=== PATIENT | female | born 1940 | race Caucasian/White ===

== ENCOUNTER → 2016-12-01 | Outpatient (CLI) | payer OTHER, MEDICARE ==
[~2016-12-01] MED LIST: GADOBUTROL 10 ML VIAL IVP ONE
--- NOTE | 2016-12-01 15:15 | MA ---
CORRECTED ORDER Screening Digital Mammogram With iCAD Analysis Clinical Indications: 76-year-old female whose mother had breast cancer at age 70. The patient presents for routine annual mammographic screening. Technique: Standard cephalocaudal projections are obtained. Digital breast tomosynthesis was performed in the MLO projection with reconstruction at 1.0 mm slice thickness and composite MLO views reconstructed. This examination is processed by the iCAD computer aided detection system. Cutaneous markers are in place normal zone the skin surface of each breast. Comparison: Bilateral digital screening mammography, dated November 30, 2015, November 28, 2014, November 05, 2013, October 15, 2012, October 13, 2011, and October 11, 2010. Breast Density: Type B; Scattered fibroglandular densities. Findings: CAD was reviewed. There are no new masses, suspicious calcifications, or secondary signs of malignancy seen. There has been no significant change in the appearance of either breast. A small nodular opacity in the superior left breast is unchanged from previous exams. There are some benign-appearing calcifications seen bilaterally, some of which are dermal in etiology. Impression: Benign mammography. BI-RADS 2. Recommendation: Routine mammographic screening in one year. [facility] will send a result letter to the patient. Negative mammography should not preclude additional workup of a clinically suspicious finding. The patient's information is entered into a reminder system with a target due date for her next mammogram. [facility]
== END ==
LOC: FIMAGING 13:55
DX: Z12.31 Encounter for screening mammogram for malignant neoplasm of breast (principal); Z80.3 Family history of malignant neoplasm of breast
CPT/HCPCS: A9585; G0202

== ENCOUNTER → 2017-05-03 | Outpatient (CLI) | payer OTHER, MEDICARE | LOC: BMCIMAGING 10:54 | PROVIDERS: ATTEND Internal Medicine Rheumatology | DX: M02.2 Postimmunization arthropathy (principal); M19.041 Primary osteoarthritis, right hand; M19.042 Primary osteoarthritis, left hand; M17.12 Unilateral primary osteoarthritis, left knee; M11.262 Other chondrocalcinosis, left knee ==

== ENCOUNTER → 2017-12-05 | Outpatient (CLI) | payer OTHER, MEDICARE ==
[~2017-12-05] MED LIST changes: -GADOBUTROL 10 ML VIAL IVP ONE; +HEPARIN 10,000 UNIT/10 ML MDV ONE; +VERAPAMIL 5 MG/2 ML VIAL ONE
== END ==
LOC: FIMAGING 14:10
PROVIDERS: ATTEND Family Medicine
DX: Z12.31 Encounter for screening mammogram for malignant neoplasm of breast (principal); Z80.3 Family history of malignant neoplasm of breast
CPT/HCPCS: J1644

== ENCOUNTER → 2018-10-09 | Outpatient (CLI) | payer OTHER, MEDICARE | LOC: FIMAGING 15:43 | PROVIDERS: ATTEND Family Medicine | DX: H02.402 Unspecified ptosis of left eyelid (principal); M43.12 Spondylolisthesis, cervical region; M50.321 Other cervical disc degeneration at C4-C5 level ==

== ENCOUNTER → 2018-11-06 | Outpatient (CLI) | payer OTHER, MEDICARE ==
[~2018-11-06] MED LIST changes: +GADOBUTROL 10 ML VIAL IVP ONE; -HEPARIN 10,000 UNIT/10 ML MDV ONE; -VERAPAMIL 5 MG/2 ML VIAL ONE
== END ==
LOC: FIMAGING 17:28
PROVIDERS: ATTEND Internal Medicine Hematology & Oncology
DX: C85.10 Unspecified B-cell lymphoma, unspecified site (principal); H02.401 Unspecified ptosis of right eyelid
CPT/HCPCS: 70553; A9585; 86705-90

== ENCOUNTER → 2018-11-07 | Outpatient (CLI) | payer OTHER, MEDICARE ==
[~2018-11-07] MED LIST changes: -GADOBUTROL 10 ML VIAL IVP ONE; +LIDO/EPI 1% **for epidural** 30 ML SDV ONE; +METHOTREXATE SODIUM IT ONE; +NS IT ONE
[2018-11-07 13:46] LABS: INR 1.03 (0.83-1.16); PROTIME(PATIENT) 13.7 SEC (12.0-15.0)
== END ==
LOC: FIMAGING 12:52
PROVIDERS: ATTEND Internal Medicine Hematology & Oncology
PROC: 3E0R305 Introduction of Other Antineoplastic into Spinal Canal, Percutaneous Approach (ICD-10-PCS; principal; 2018-11-07)
DX: Z51.11 Encounter for antineoplastic chemotherapy (principal); C85.90 Non-Hodgkin lymphoma, unspecified, unspecified site
CPT/HCPCS: 88112; 96450; J9250; 82784-90; 83916-90

== ENCOUNTER → 2018-11-08 | Outpatient (CLI) | payer OTHER, MEDICARE | LOC: BHFA 14:00 | PROVIDERS: ATTEND Internal Medicine Cardiovascular Disease | DX: Z51.11 Encounter for antineoplastic chemotherapy (principal) ==

== ENCOUNTER 2018-11-23 09:43 | Day surgery (SDC) | payer OTHER, MEDICARE ==
[2018-11-23] MEDS ORDERED: NALOXONE HCL 0.4 MG/ML INJ IVP PRN (10:58)
[2018-11-23] MEDS ORDERED: MEPERIDINE 25 MG/ML SYR IVP PRN (10:58)
[2018-11-23] MEDS ORDERED: fentaNYL 100 MCG/2 ML INJ IVP PRN (10:58)
[2018-11-23] MEDS ORDERED: NS 1,000 ML IV SCH (11:00)
--- NOTE | 2018-11-23 11:03 | PDRADPRE ---
Radiology History & Physical Indication for procedure: cancer Home medications: Calcium Carb/Vit D3/Minerals [[employer] CALCIUM CHEWABLES PLUS TAB] 1 tab PO DAILY [Last Taken 02/01/16] Levothyroxine [Synthroid 50 mcg (*)] 50 mcg PO DAILY06 02/16/15 [Last Taken ] Multivitamins [Multivitamin (*)] 1 each PO DAILY 02/16/15 [Last Taken 02/01/16] Beta-Carotene(A) W-C & E/Min [Ocuvite] 1 tab PO DAILY 01/19/16 [Last Taken 01/31] Cholecalciferol Vit D3 [Vitamin D3 2000 units] 2,000 units PO DAILY 01/19/16 [ Last Taken 02/01/16] Gabapentin [Neurontin 300 MG (*)] 300 mg PO BID 01/19/16 [Last Taken Unknown] Allergies/Adverse Reactions: shellfish derived [shrimp] Allergy (Mild, Verified 02/23/15 15:08) BLOATING Mental status: A&Ox3
--- NOTE | 2018-11-23 11:03 | PDPROPOC ---
Sedation Plan of Care ASA Classification: ASA 2 Mallampati Score: Class 2 Mallampati Reference Image:
[2018-11-23] MEDS ORDERED: LIDOCAINE 1% 300 MG/30 ML SDV ONE (11:17)
[2018-11-23] MEDS ORDERED: LIDO/EPI 1% **for epidural** 30 ML SDV ONE (11:42)
[2018-11-23] MEDS ORDERED: ACETAMINOPHEN 325 MG TAB PO PRN (12:21)
[2018-11-23] MEDS ORDERED: ONDANSETRON 4 MG/2 ML VIAL IVP PRN (12:21)
[2018-11-23 13:29] VITALS: BP 152/91
== END 2018-11-23 13:30 | disposition home or self-care (01) ==
LOC: FIMAGING 09:43
PROVIDERS: ATTEND Internal Medicine Hematology & Oncology
DX: C85.10 Unspecified B-cell lymphoma, unspecified site (principal)
CPT/HCPCS: J1642; J2310; J3010

== ENCOUNTER → 2018-12-17 | Outpatient (CLI) | payer OTHER, MEDICARE ==
[~2018-12-17] MED LIST changes: -LIDO/EPI 1% **for epidural** 30 ML SDV ONE; +LIDOCAINE 1% 300 MG/30 ML SDV ONE
[2018-12-17 09:11] LABS: INR 0.97 (0.83-1.16); PROTIME(PATIENT) 13.1 SEC (12.0-15.0)
== END ==
LOC: FIMAGING 08:16
PROVIDERS: ATTEND Internal Medicine Hematology & Oncology
PROC: 009U3ZX Drainage of Spinal Canal, Percutaneous Approach, Diagnostic (ICD-10-PCS; principal; 2018-12-17)
DX: C85.10 Unspecified B-cell lymphoma, unspecified site (principal)
CPT/HCPCS: 62270; J9250

== ENCOUNTER → 2019-01-07 | Outpatient (CLI) | payer OTHER, MEDICARE ==
[~2019-01-07] MED LIST changes: +IOHEXOL 350mgI/ML (OMNIPAQUE) 150 ML BTL IV ONE; -LIDOCAINE 1% 300 MG/30 ML SDV ONE
== END ==
LOC: FIMAGING 12:31
PROVIDERS: ATTEND Nurse Practitioner
DX: I82.4Z2 Acute embolism and thrombosis of unspecified deep veins of left distal lower extremity (principal); R91.8 Other nonspecific abnormal finding of lung field; C85.10 Unspecified B-cell lymphoma, unspecified site; R05 Cough
CPT/HCPCS: 71046; 71275; 93971; Q9967; J9250

== ENCOUNTER → 2019-01-08 | Outpatient (CLI) | payer OTHER, MEDICARE ==
[~2019-01-08] MED LIST changes: -IOHEXOL 350mgI/ML (OMNIPAQUE) 150 ML BTL IV ONE; +IOPAMIDOL (ISOVUE-M 200) 20 ML VIAL ONE; +LIDOCAINE 1% 300 MG/30 ML SDV ONE
== END ==
LOC: FIMAGING 08:59
PROVIDERS: ATTEND Internal Medicine Hematology & Oncology
PROC: 3E0S305 Introduction of Other Antineoplastic into Epidural Space, Percutaneous Approach (ICD-10-PCS; principal; 2019-01-08)
DX: C85.10 Unspecified B-cell lymphoma, unspecified site (principal)
CPT/HCPCS: 77003; 96450; J9250; Q9966

== ENCOUNTER → 2019-01-21 | Outpatient (CLI) | payer OTHER, MEDICARE | LOC: FIMAGING 14:50 | DX: R05 Cough (principal); M47.894 Other spondylosis, thoracic region; M47.896 Other spondylosis, lumbar region; Z95.9 Presence of cardiac and vascular implant and graft, unspecified ==

== ENCOUNTER → 2019-02-05 | Outpatient (CLI) | payer OTHER, MEDICARE ==
[2019-02-05 09:18] LABS: INR 1.02 (0.83-1.16)
== END ==
LOC: FIMAGING 08:17
PROVIDERS: ATTEND Internal Medicine Hematology & Oncology
DX: C83.30 Diffuse large B-cell lymphoma, unspecified site (principal)
CPT/HCPCS: 88112; 96450; J9250; Q9966

== ENCOUNTER 2019-02-11 15:43 | Inpatient (IN) | payer OTHER, MEDICARE ==
--- NOTE | 2019-02-11 16:19 | EDPHY ---
H & P Time Seen by Provider: 02/11/19 16:19 HPI/ROS: CHIEF COMPLAINT: Fever and dehydration HISTORY OF PRESENT ILLNESS: 79-year-old woman presents with fever and shaking chills today. She had her last chemotherapy for lymphoma about 2 weeks ago, said mouth sores getting worse each day since then with decreased oral intake. She developed a little bit of a cough 2 days ago and started with fever and shaking chills today. Symptoms severe, associated with decreased oral intake but no vomiting or diarrhea. No chest pain or shortness of breath, no headache or neck stiffness. Not better or worse with anything. REVIEW OF SYSTEMS: Eye: no change in vision ENT: HPI Cardiac: no chest pain or syncope Pulmonary: HPI Abdomen: no vomiting, diarrhea, abdominal pain Musculoskeletal: no back pain or neck pain Skin: Facial abrasion after tripping coming back from the bathroom last night. Neuro: no headache Constitutional: HPI : no urinary symptoms A comprehensive 10 point review of systems is otherwise negative aside from elements mentioned in the history of present illness. PAST MEDICAL HISTORY: Lymphoma, Dr. Vickers. 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 Eyes: No scleral icterus. ENT, Mouth: Dry mucous membranes. Respiratory: Slight expiratory wheezing right slightly greater than left. Cardiovascular: Regular rate and rhythm. Gastrointestinal: Abdomen is soft and non tender. Neurological: Alert, face symmetric, normal motor and sensory in extremities. Fluent speech. Skin: Bridge of the nose abrasion. Skin over the right subclavian port is clean dry and intact. Musculoskeletal: No midline spinal tenderness. No meningeal signs. Psychiatric: Not agitated. Emergency Department course/MDM: Patient presents with fever and neutropenia. Plan for broad-spectrum antibiotics, lactate, IV fluids, admission to hospitalist. Include cefepime, would also include vancomycin because of indwelling port. Noncontrast head CT for head trauma last night and anticoagulated on Xarelto. Cervical spine cleared clinically. Normal saline IV bolus. Lactate not elevated, did not develop hypotension. 1824: head CT per Dalia negative for trauma. Smoking Status: Never smoked Constitutional: Initial Vital Signs Temperature (C) 38.0 C 02/11/19 16:07 Heart Rate 102 H 02/11/19 16:07 Respiratory Rate 18 02/11/19 16:07 Blood Pressure 138/71 H 03/18/19 16:07 O2 Sat (%) 92 02/11/19 16:07 O2 Delivery Mode Room Air Allergies/Adverse Reactions: No Known Allergies Allergy (Unverified 02/11/19 16:06) Home Medications: Medication Instructions Recorded Albuterol [Proventil Inhaler HFA 2 puffs IH TID PRN 02/11/19 (*)] LORazepam [Ativan (*)] 2 mg PO HS 02/11/19 Levothyroxine [Synthroid 50 mcg 50 mcg PO DAILY06 02/11/19 (*)] Rivaroxaban [Xarelto] 20 mg PO DAILY@12 02/11/19 Medical Decision Making - Diagnostics Imaging Results: Imaging Impressions Chest X-Ray 02/11/19 16:28 Impression: Limited hypoventilatory chest with patchy bilateral opacities that could be related to atelectasis or less likely pneumonia. Imaging: I viewed and interpreted images myself Differential Diagnosis: Differential for fever considered including but not limited to viral syndrome, influenza, UTI, sepsis, pneumonia Consult/Admit Bed Type: [address] Vickers Critical Care Time: Critical care time spent by me, Dr. Tompkins, exclusively with the care of this patient was 30 minutes, exclusive of PA or PIERCER OPERATOR time and exclusive of separate procedures. The organ system at risk was infectious and I ordered IV fluids and multiple antibiotics and multiple diagnostics to stabilize the patient and prevent worsening of the patient's condition. - Data Points Laboratory Results: Laboratory Results 02/11/19 15:50 02/11/19 15:50 02/11/19 02/11/19 02/11/19 15:56 15:54 15:50 WBC RBC Hgb Hct MCV MCH MCHC RDW Plt Count MPV Neut % (Auto) Lymph % (Auto) [place] % (Auto) Eos % (Auto) Baso % (Auto) Nucleat RBC Rel Count Absolute Neuts (auto) Absolute Lymphs (auto) Absolute Monos (auto) Absolute Eos (auto) Absolute Basos (auto) Absolute Nucleated RBC Immature Gran % Seg Neutrophils % Band Neutrophils % Lymphocytes % Monocytes % Eosinophils % Basophils % Metamyelocytes % Myelocytes % Promyelocytes % Blast Cells % Immature Gran # Absolute Seg Neuts Absolute Band Neuts Absolute Lymphocytes Absolute Monocytes Absolute Eosinophils Absolute Basophils Absolute Metamyelocyte Absolute Myelocytes Absolute Promyelocytes Absolute Plasma Cells Nucleated RBCs Absolute Blast Cells Plasma Cells % Platelet Estimate Elliptocytes Smear Review By PT 14.7 SEC SEC (12.0-15.0) INR 1.20 H (0.83-1.16) APTT 31.7 SEC SEC (23.0-38.0) VBG Lactic Acid 1.5 mmol/L mmol/L (0.7-2.1) Sodium 129 mEq/L L mEq/L (135-145) Potassium 3.7 mEq/L mEq/L (3.5-5.2) Chloride 97 mEq/L mEq/L (97-110) Carbon Dioxide 21 mEq/l L mEq/l (22-31) Anion Gap 11 mEq/L mEq/L (6-14) BUN 9 mg/dL mg/dL (7-23) Creatinine 0.7 mg/dL mg/dL (0.6-1.0) Estimated GFR > 60 Glucose 139 mg/dL H mg/dL (70-100) Calcium 8.4 mg/dL L mg/dL (8.5-10.4) Total Bilirubin 1.0 mg/dL mg/dL (0.1-1.4) 02/11/19 02/11/19 15:50 15:50 WBC 0.19 10^3/uL L* 10^3/uL (3.80-9.50) RBC 2.05 10^6/uL L 10^6/uL (4.18-5.33) Hgb 7.1 g/dL L g/dL (12.6-16.3) Hct 20.1 % L % (38.0-47.0) MCV 98.0 fL fL (81.5-99.8) MCH 34.6 pg H pg (27.9-34.1) MCHC 35.3 g/dL g/dL (32.4-36.7) RDW 14.5 % % (11.5-15.2) Plt Count 60 10^3/uL L 10^3/uL (150-400) MPV 11.0 fL fL (8.7-11.7) Neut % (Auto) Not Reported Lymph % (Auto) Not Reported [place] % (Auto) Not Reported Eos % (Auto) Not Reported Baso % (Auto) Not Reported Nucleat RBC Rel Count Not Reported Absolute Neuts (auto) Not Reported Absolute Lymphs (auto) Not Reported Absolute Monos (auto) Not Reported Absolute Eos (auto) Not Reported Absolute Basos (auto) Not Reported Absolute Nucleated RBC Not Reported Immature Gran % Not Reported Seg Neutrophils % 5.1 % % Band Neutrophils % 6.1 % % Lymphocytes % 50.5 % % Monocytes % 22.2 % % Eosinophils % 2.0 % % Basophils % 11.1 % % Metamyelocytes % 0.0 % % Myelocytes % 0.0 % % Promyelocytes % 0.0 % % Blast Cells % 0.0 % % Immature Gran # Not Reported Absolute Seg Neuts 0.01 10^3/uL L 10^3/uL (1.70-6.50) Absolute Band Neuts 0.01 10^3/uL 10^3/uL (0.00-0.70) Absolute Lymphocytes 0.10 10^3/uL L 10^3/uL (1.00-3.00) Absolute Monocytes 0.04 10^3/uL L 10^3/uL (0.30-0.80) Absolute Eosinophils 0.00 10^3/uL L 10^3/uL (0.03-0.40) Absolute Basophils 0.02 10^3/uL 10^3/uL (0.02-0.10) Absolute Metamyelocyte 0.00 10^3/mL 10^3/mL (0.00-0.00) Absolute Myelocytes 0.00 10^3/mL 10^3/mL (0.00-0.00) Absolute Promyelocytes 0.00 10^3/uL 10^3/uL (0.00-0.00) Absolute Plasma Cells 0.00 10^3/uL 10^3/uL (0.00-0.00) Nucleated RBCs 2.0 /100 WBC H /100 WBC (0-0) Absolute Blast Cells 0.00 10^3/uL 10^3/uL (0.00-0.00) Plasma Cells % 0.0 % % Platelet Estimate DECREASED L (ADEQ) Elliptocytes 1+ H Smear Review By Pending PT INR APTT VBG Lactic Acid Sodium 129 mEq/L L mEq/L (135-145) Potassium 3.8 mEq/L mEq/L (3.5-5.2) Chloride 96 mEq/L L mEq/L (97-110) Carbon Dioxide 21 mEq/l L mEq/l (22-31) Anion Gap 12 mEq/L mEq/L (6-14) BUN 9 mg/dL mg/dL (7-23) Creatinine 0.7 mg/dL mg/dL (0.6-1.0) Estimated GFR > 60 Glucose 138 mg/dL H mg/dL (70-100) Calcium 8.5 mg/dL mg/dL (8.5-10.4) Total Bilirubin Medications Given: Discontinued Medications Cefepime HCl 2 gm/ Sodium (Chloride) 100 mls @ 200 mls/hr IV EDNOW ONE PRN Reason: Protocol Stop: 02/11/19 16:57 Last Admin: 02/11/19 17:22 Dose: 100 mls Sodium Chloride (Ns) 1,800 mls @ 3,600 mls/hr 30 ml/kg infuse over 30 min ( 1800 ml) IV EDNOW ONE PRN Reason: Protocol Stop: 02/11/19 16:57 Last Admin: 02/11/19 16:38 Dose: 1,800 mls Vancomycin/Sodium Chloride (Vancomycin 1 Gm (Premix)) 250 mls @ 250 mls/hr IV EDNOW ONE PRN Reason: Protocol Stop: 02/11/19 17:30 Last Admin: 02/11/19 16:59 Dose: 250 mls Departure - Departure Disposition: [facility] Inpatient Acute Clinical Impression: Fever and neutropenia Condition: Fair
[2019-02-11 16:25] LABS: PLATELET COUNT 60 10^3/uL (150-400)
[2019-02-11] MEDS ORDERED: CEFEPIME HCL 2 GM in NS 100 ML IV ONE (16:28)
[2019-02-11] MEDS ORDERED: NS 1,800 ML IV ONE (16:28)
[2019-02-11] MEDS ORDERED: VANCOMYCIN HCL/NORMAL SALINE 250 ML IV ONE (16:31)
[2019-02-11 16:49] LABS: INR 1.2 (0.83-1.16); PROTIME(PATIENT) 14.7 SEC (12.0-15.0)
[2019-02-11] MEDS ORDERED: HYDROmorphONE/DILAUDID 1 MG/ML INJ IVP PRN (17:33)
[2019-02-11] MEDS ORDERED: ONDANSETRON DISINTEGRATING 4 MG TAB PO PRN (17:33)
[2019-02-11] MEDS ORDERED: HYDROCODONE/APAP 5/325 TAB PO PRN (17:33)
[2019-02-11] MEDS ORDERED: ONDANSETRON 4 MG/2 ML VIAL IVP PRN (17:33)
[2019-02-11] MEDS ORDERED: PROMETHAZINE HCL 25 MG/ML INJ IVP PRN (17:33)
[2019-02-11] MEDS ORDERED: oxyCODONE IR 5 MG TAB PO PRN (17:33)
[2019-02-11] MEDS ORDERED: ALBUTEROL 3 ML DEYVIAL IH PRN (17:33)
[2019-02-11] MEDS ORDERED: ALBUTEROL 60 PUFFS/8 GM MDI IH PRN (17:35)
[2019-02-11] MEDS ORDERED: NS 1,000 ML IV SCH (17:45)
--- NOTE | 2019-02-11 19:45 | PDGENHP ---
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 She notes that she has been undergoing chemotherapy for her lymphoma and about 2 weeks ago completed her 3rd cycle of RCHOP, she is followed by Dr. Vickers. She has been feeling somewhat poorly since starting chemotherapy and has had some vague chest pain since having her port placed for chemo, but for the last week all of these sxs have gotten worse. She was seen by her oncologist, Dr. Vickers, for these sxs and was started on cough medicine as well as inhalers but she states that did not help. Her mouth and esophagus pain has also significantly increased to where she now has a hard time even swallowing water and a lot of difficulty with eating. She has essentially not eaten anything in 2 days. History Information - Allergies/Home Medication List Allergies/Adverse Reactions: No Known Allergies Allergy (Unverified 02/11/19 16:06) Home Medications: Albuterol [Proventil Inhaler HFA (*)] 2 puffs IH TID PRN 02/11/19 [Last Taken Unknown] LORazepam [Ativan (*)] 2 mg PO HS 02/11/19 [Last Taken Unknown] Levothyroxine [Synthroid 50 mcg (*)] 50 mcg PO DAILY06 02/11/19 [Last Taken ] Rivaroxaban [Xarelto] 20 mg PO DAILY@12 02/11/19 [Last Taken 02/10/19] I have personally reviewed and updated: family history, medical history, social history, surgical history - Past Medical History arthritis, cancer (stage 4a DLBCL, mets to bone), DVT Additional medical history: hypothyroid - Surgical History Additional surgical history: tonsills and adenoids. LTHa. right partial knee replacement. cataracts - Family History Positive for: cancer (gastric) - Social History Smoking Status: Never smoked Alcohol Use: Occasionally Drug Use: None Additional social history: lives independently Review of Systems Review of Systems: ROS: 10pt was reviewed & negative except for what was stated in HPI & below Physical Exam Physical Exam: Temp Pulse Resp BP Pulse Ox 38.0 C 80 16 120/75 97 02/11/19 16:07 02/11/19 17:13 02/11/19 17:13 02/11/19 17:13 02/11/19 17:13 Constitutional: chronically ill appearing, uncomfortable Eyes: PERRL, anicteric sclera Ears, Nose, Mouth, Throat: dry mucous membranes, other (white lesions on buccal mucosa and tongue) Cardiovascular: no murmur, rub, or gallop, tachycardia, No edema Respiratory: reduced air movement, expiratory wheeze, inspiratory crackles Gastrointestinal: normoactive bowel sounds, soft, non-tender abdomen Genitourinary: no bladder tenderness Skin: warm, normal color Musculoskeletal: no muscle tenderness, generalized weakness Neurologic: AAOx3 Psychiatric: interacting appropriately, not anxious, flat affect Lab Data & Imaging Review 02/11/19 15:50 02/11/19 15:50 WBC 0.19 10^3/uL (3.80-9.50) L* 02/11/19 15:50 RBC 2.05 10^6/uL (4.18-5.33) L 02/11/19 15:50 Hgb 7.1 g/dL (12.6-16.3) L 02/11/19 15:50 Hct 20.1 % (38.0-47.0) L 02/11/19 15:50 MCV 98.0 fL (81.5-99.8) 02/11/19 15:50 MCH 34.6 pg (27.9-34.1) H 02/11/19 15:50 MCHC 35.3 g/dL (32.4-36.7) 02/11/19 15:50 RDW 14.5 % (11.5-15.2) 02/11/19 15:50 Plt Count 60 10^3/uL (150-400) L 02/11/19 15:50 MPV 11.0 fL (8.7-11.7) 02/11/19 15:50 Neut % (Auto) Not Reported 02/11/19 15:50 Lymph % (Auto) Not Reported 02/11/19 15:50 [place] % (Auto) Not Reported 02/11/19 15:50 Eos % (Auto) Not Reported 02/11/19 15:50 Baso % (Auto) Not Reported 02/11/19 15:50 Nucleat RBC Rel Count Not Reported 02/11/19 15:50 Absolute Neuts (auto) Not Reported 02/11/19 15:50 Absolute Lymphs (auto) Not Reported 02/11/19 15:50 Absolute Monos (auto) Not Reported 02/11/19 15:50 Absolute Eos (auto) Not Reported 02/11/19 15:50 Absolute Basos (auto) Not Reported 02/11/19 15:50 Absolute Nucleated RBC Not Reported 02/11/19 15:50 Immature Gran % Not Reported 02/11/19 15:50 Seg Neutrophils % 5.1 % 02/11/19 15:50 Band Neutrophils % 6.1 % 02/11/19 15:50 Lymphocytes % 50.5 % 02/11/19 15:50 Monocytes % 22.2 % 02/11/19 15:50 Eosinophils % 2.0 % 02/11/19 15:50 Basophils % 11.1 % 02/11/19 15:50 Metamyelocytes % 0.0 % 02/11/19 15:50 Myelocytes % 0.0 % 02/11/19 15:50 Promyelocytes % 0.0 % 02/11/19 15:50 Blast Cells % 0.0 % 02/11/19 15:50 Immature Gran # Not Reported 02/11/19 15:50 Absolute Seg Neuts 0.01 10^3/uL (1.70-6.50) L 02/11/19 15:50 Absolute Band Neuts 0.01 10^3/uL (0.00-0.70) 02/11/19 15:50 Absolute Lymphocytes 0.10 10^3/uL (1.00-3.00) L 02/11/19 15:50 Absolute Monocytes 0.04 10^3/uL (0.30-0.80) L 02/11/19 15:50 Absolute Eosinophils 0.00 10^3/uL (0.03-0.40) L 02/11/19 15:50 Absolute Basophils 0.02 10^3/uL (0.02-0.10) 02/11/19 15:50 Absolute Metamyelocyte 0.00 10^3/mL (0.00-0.00) 02/11/19 15:50 Absolute Myelocytes 0.00 10^3/mL (0.00-0.00) 02/11/19 15:50 Absolute Promyelocytes 0.00 10^3/uL (0.00-0.00) 02/11/19 15:50 Absolute Plasma Cells 0.00 10^3/uL (0.00-0.00) 02/11/19 15:50 Nucleated RBCs 2.0 /100 WBC (0-0) H 02/11/19 15:50 Absolute Blast Cells 0.00 10^3/uL (0.00-0.00) 02/11/19 15:50 Plasma Cells % 0.0 % 02/11/19 15:50 Platelet Estimate DECREASED (ADEQ) L 02/11/19 15:50 Elliptocytes 1+ H 02/11/19 15:50 PT 14.7 SEC (12.0-15.0) 02/11/19 15:54 INR 1.20 (0.83-1.16) H 02/11/19 15:54 APTT 31.7 SEC (23.0-38.0) 02/11/19 15:54 VBG Lactic Acid 1.5 mmol/L (0.7-2.1) 02/11/19 15:56 Sodium 129 mEq/L (135-145) L 02/11/19 15:50 Potassium 3.7 mEq/L (3.5-5.2) 02/11/19 15:50 Chloride 97 mEq/L (97-110) 02/11/19 15:50 Carbon Dioxide 21 mEq/l (22-31) L 02/11/19 15:50 Anion Gap 11 mEq/L (6-14) 02/11/19 15:50 BUN 9 mg/dL (7-23) 02/11/19 15:50 Creatinine 0.7 mg/dL (0.6-1.0) 02/11/19 15:50 Estimated GFR > 60 02/11/19 15:50 Glucose 139 mg/dL (70-100) H 02/11/19 15:50 Calcium 8.4 mg/dL (8.5-10.4) L 02/11/19 15:50 Total Bilirubin 1.0 mg/dL (0.1-1.4) 02/11/19 15:50 Nasal Influenza A PCR NEGATIVE FOR FLU A (NEGATIVE) 02/11/19 17:50 Nasal Influenza B PCR NEGATIVE FOR FLU B (NEGATIVE) 02/11/19 17:50 Visualized and Interpreted Chest x-ray results: Yes Chest X-Ray results: other (patchy bilateral opacities, atelectasis versus pna) Visualized and Interpreted imaging results: Yes Interpretation: head CT: no acute findings, sclerotic frontal bone lesion unchanged, no new lesions Assessment & Plan Assessment: Fever and neutropenia (Acute) 79 yo F with stage 4 DLBCL s/p RCHOP cycle 3 approximately 2 weeks ago presenting with fever, rigors and cough as well as mouth pain and inability to tolerate PO in setting of neutropenia # neutropenic fever: not yet febrile here, but per report fevers > 102 at home for days, with respiratory complaints but no clear e/o pna. Rigors concerning for bacteremia with blood cultures pending. Started on cefepime and vanco, will continue both for now given complaints of port pain and possible line infection (though port does not appear grossly infected). Blood cultures pending. Resp PCR pending, will get repeat CXR in am. HD stable, lactate wnl. # dysphagia: with oral mucosal lesions that appear most c/w mucositis but difficult to exclude thrush as well, will start magic mouthwash, nystatin s/s, oral care # pancytopenia: in the setting of recent chemotherapy, hgb of 7.1, plts of 60, wbc of 0.19. Will hold off on transfusion for now, but if hgb < 7 would transfuse # DLBCL: undergoing RCHOP s/p cycle [address] Vickers, known bone mets and dural lesion noted on brain MRI # hyponatremia: presumably hypovolemic hyponatremia and has slightly trended down from prior, patient with reasons for SIADH as well, will check urine studies and monitor # DVT: will continue xarelto # IP status, will require > 48 hours stay for eval/mgmt of above, oncology consulted by ER doctor and will see patient in am Patient new to my care. Old records reviewed and summarized as above. Care plan reviewed with ER doctor including plan for abx.
[2019-02-11] MEDS: ACETAMINOPHEN 325 MG TAB PO PRN (20:12)
[2019-02-11] MEDS: IPRATROPIUM/ALBUTEROL 3 ML DEYVIAL IH SCH (20:16)
--- NOTE | 2019-02-11 21:08 | PDMN ---
Medical Necessity Medical necessity: [facility] Systemic or Infectious Condition: 79 yo w/ fever, chills, oral lesions in setting of DLBCL St IV w/ mets to skull, dura and poss tongue/tonsils. Last chemo 2 wks ago. IP status for neutropenic fever w/ WBC 0.19, and pancytopenia H/H 06/15, plt 60. Pt high risk. Onc consult. BC pending. IVF, IV antibx.
[2019-02-11] MEDS: LORazepam 1 MG TAB PO SCH (21:57)
[2019-02-11] MEDS: NYSTATIN SUSP 500000 UNIT/5 ML UD LIQ PO SCH (21:57)
[2019-02-11] MEDS: MBX SOLN 30 ML BOTTLE PO PRN (22:01)
[2019-02-12] MEDS: CEFEPIME HCL 2 GM in NS 100 ML IV SCH ×3 (00:11→18:25)
[2019-02-12 05:08] LABS: PLATELET COUNT 39 10^3/uL (150-400)
[2019-02-12] MEDS: IPRATROPIUM/ALBUTEROL 3 ML DEYVIAL IH SCH ×3 (05:25→17:09)
[2019-02-12] MEDS: LEVOTHYROXINE 50 MCG TAB PO SCH (06:35)
[2019-02-12] MEDS: NYSTATIN SUSP 500000 UNIT/5 ML UD LIQ PO SCH ×4 (06:36→20:59)
[2019-02-12] MEDS: MBX SOLN 30 ML BOTTLE PO PRN ×3 (06:37→21:08)
[2019-02-12] MEDS: ACETAMINOPHEN 325 MG TAB PO PRN ×2 (07:26→20:59)
--- NOTE | 2019-02-12 12:00 | ASMTCMCOM ---
CM Note CM Note Notes: 02/12/2019 Case Management Note Discussed pt during rounds this morning. Pt admitted for fever, neutropenia and lymphoma in the setting of recently diagnosed DLBCL stage 4 with known mets to skull and dura as well as possible mets to tongue and tonsils. [facility] onsite to meet w/pt. PT OT evals are pending. Case Management d/c poc: to be determined. Case Management to follow. Date Signed: 02/12/2019 11:59 AM Electronically Signed By:Génesis Martínez RN
--- NOTE | 2019-02-12 13:02 | PDCONSULT ---
Optometric Aide Note: Hematology/oncology consultation note Reason for consultation: Diffuse large B-cell lymphoma, neutropenic fever History of present illness: This is a very pleasant 79-year-old female with history of diffuse large B-cell lymphoma who was admitted for neutropenic fever. She is well known to our practice and is followed by Dr. Primitivo Vickers. She initially presented in late 2018 and was diagnosed with diffuse large B-cell, GC type, Ki-67 20%. She was initiated on R-CHOP 11/26/2019. She has received a total 4 cycles with the last 1 being 01/31/2019. She did receive growth factor with the 1st few cycles but had significant bony pain, myalgias, and ear pain. She subsequently declined any further G-CSF. She was admitted to [facility] yesterday for symptoms of fatigue, fever, decreased p.o. Intake. She was found to have significant neutropenia with associated fever. She had blood cultures that are currently pending. She did have an abnormal chest x-ray. She has had a 3 week history of ongoing cough that has not improved. She otherwise has no other complaints today. Review of systems: Twelve point review of system was obtained was otherwise negative unless stated in HPI. PMH/PSH: Diffuse large B-cell lymphoma Hypothyroidism Tonsillectomy, adenoidectomy Family history: Father had gastric cancer Social history: She is a never smoker. She is to be an ICU nurse. Medications: Reviewed in the EMR Allergies: No known drug allergies Physical: Temp Pulse Resp BP Pulse Ox 36.9 C 74 18 98/52 L 95 02/12/19 10:22 02/12/19 11:28 02/12/19 11:28 02/12/19 10:22 02/12/19 11:28 O2 (L/minute) 2.5 General: Pleasant-appearing female in no acute distress HEENT: Oropharynx clear, extraocular movements are intact Pulmonary: Crackles appreciated at the base of the right lung otherwise good air entry Cardiovascular: Regular rhythm Abdomen: Soft nontender nondistended bowel sounds are present Extremities: No cyanosis clubbing or edema Neuro: Moving all extremities Psych: Appropriate affect Skin: No skin lesions WBC 0.34 10^3/uL (3.80-9.50) L* 02/12/19 04:15 RBC 1.60 10^6/uL (4.18-5.33) L 02/12/19 04:15 Hgb 5.3 g/dL (12.6-16.3) L* 02/12/19 04:15 Hct 16.5 % (38.0-47.0) L* 02/12/19 04:15 MCV 103.1 fL (81.5-99.8) H 02/12/19 04:15 MCH 33.1 pg (27.9-34.1) 02/12/19 04:15 MCHC 32.1 g/dL (32.4-36.7) L 02/12/19 04:15 RDW 14.5 % (11.5-15.2) 02/12/19 04:15 Plt Count 39 10^3/uL (150-400) L 02/12/19 04:15 MPV 10.9 fL (8.7-11.7) 02/12/19 04:15 Neut % (Auto) Not Reported 02/12/19 04:15 Lymph % (Auto) Not Reported 02/12/19 04:15 Barren % (Auto) Not Reported 02/12/19 04:15 Eos % (Auto) Not Reported 02/12/19 04:15 Baso % (Auto) Not Reported 02/12/19 04:15 Nucleat RBC Rel Count Not Reported 02/12/19 04:15 Absolute Neuts (auto) Not Reported 02/12/19 04:15 Absolute Lymphs (auto) Not Reported 02/12/19 04:15 Absolute Monos (auto) Not Reported 02/12/19 04:15 Absolute Eos (auto) Not Reported 02/12/19 04:15 Absolute Basos (auto) Not Reported 02/12/19 04:15 Absolute Nucleated RBC Not Reported 02/12/19 04:15 Immature Gran % Not Reported 02/12/19 04:15 Seg Neutrophils % 7.8 % 02/12/19 04:15 Band Neutrophils % 8.5 % 02/12/19 04:15 Lymphocytes % 34.5 % 02/12/19 04:15 Monocytes % 37.3 % 02/12/19 04:15 Eosinophils % 6.3 % 02/12/19 04:15 Basophils % 5.6 % 02/12/19 04:15 Metamyelocytes % 0.0 % 02/12/19 04:15 Myelocytes % 0.0 % 02/12/19 04:15 Promyelocytes % 0.0 % 02/12/19 04:15 Blast Cells % 0.0 % 02/12/19 04:15 Immature Gran # Not Reported 02/12/19 04:15 Absolute Seg Neuts 0.03 10^3/uL (1.70-6.50) L 02/12/19 04:15 Absolute Band Neuts 0.03 10^3/uL (0.00-0.70) 02/12/19 04:15 Absolute Lymphocytes 0.12 10^3/uL (1.00-3.00) L 02/12/19 04:15 Absolute Monocytes 0.13 10^3/uL (0.30-0.80) L 02/12/19 04:15 Absolute Eosinophils 0.02 10^3/uL (0.03-0.40) L 02/12/19 04:15 Absolute Basophils 0.02 10^3/uL (0.02-0.10) 02/12/19 04:15 Absolute Metamyelocyte 0.00 10^3/mL (0.00-0.00) 02/12/19 04:15 Absolute Myelocytes 0.00 10^3/mL (0.00-0.00) 02/12/19 04:15 Absolute Promyelocytes 0.00 10^3/uL (0.00-0.00) 02/12/19 04:15 Absolute Plasma Cells 0.00 10^3/uL (0.00-0.00) 02/12/19 04:15 Nucleated RBCs 0 /100 WBC (0-0) 02/12/19 04:15 Absolute Blast Cells 0.00 10^3/uL (0.00-0.00) 02/12/19 04:15 Plasma Cells % 0.0 % 02/12/19 04:15 Platelet Estimate DECREASED (ADEQ) L 02/12/19 04:15 Polychromasia 1+ H 02/12/19 04:15 Hypochromasia 2+ H 02/12/19 04:15 Oval Macrocytes 1+ H 02/12/19 04:15 Elliptocytes 1+ H 02/11/19 15:50 Smear Review By Katie MAJANO MD 02/12/19 04:15 PT 14.7 SEC (12.0-15.0) 02/11/19 15:54 INR 1.20 (0.83-1.16) H 02/11/19 15:54 APTT 31.7 SEC (23.0-38.0) 02/11/19 15:54 VBG Lactic Acid 1.5 mmol/L (0.7-2.1) 02/11/19 15:56 Sodium 135 mEq/L (135-145) 02/12/19 04:15 Potassium 3.5 mEq/L (3.5-5.2) 02/12/19 04:15 Chloride 109 mEq/L (97-110) 02/12/19 04:15 Carbon Dioxide 20 mEq/l (22-31) L 02/12/19 04:15 Anion Gap 6 mEq/L (6-14) 02/12/19 04:15 BUN 7 mg/dL (7-23) 02/12/19 04:15 Creatinine 0.6 mg/dL (0.6-1.0) 02/12/19 04:15 Estimated GFR > 60 02/12/19 04:15 Glucose 105 mg/dL (70-100) H 02/12/19 04:15 Calcium 7.6 mg/dL (8.5-10.4) L 02/12/19 04:15 Total Bilirubin 1.0 mg/dL (0.1-1.4) 02/11/19 15:50 Nasal Influenza A PCR NEGATIVE FOR FLU A (NEGATIVE) 02/11/19 17:50 Nasal Influenza B PCR NEGATIVE FOR FLU B (NEGATIVE) 02/11/19 17:50 Patient ABO/Rh A POSITIVE 02/12/19 06:08 Antibody Screen NEGATIVE 02/12/19 06:08 Crossmatch IS Only See Detail 02/12/19 06:08 Assessment plan This is a 79-year-old female with history of diffuse large B-cell lymphoma status post 4 cycles R-CHOP admitted for neutropenic fever. 1. Neutropenic fever: I agree with empiric coverage with cefepime and vancomycin. Will follow blood cultures. I have recommended obtaining a CT of the chest without contrast given her ongoing cough and abnormalities on her chest x-ray. I did discuss the use of G-CSF but given the lack of hemodynamic instability and the fact that she gets fairly symptomatic from growth factor, I think it is insensible to hold for the time being. 2. Thrombocytopenia: The secondary chemotherapy. 3. Anemia: She has no active bleeding symptoms. She is receiving blood products today. Will continue to monitor post transfusion. 4. History DVT: Recommending holding Xarelto given thrombocytopenia. All questions were answered. She voiced understanding of the plan.
[2019-02-12] MEDS: RIVAROXABAN 20 MG TAB PO SCH (13:35)
--- NOTE | 2019-02-12 14:24 | HOSPPROG ---
Hospitalist Progress Note Assessment/Plan: 79 yo F with stage 4 DLBCL s/p RCHOP cycle 3 approximately 2 weeks ago presenting with fever, rigors and cough as well as mouth pain and inability to tolerate PO in setting of neutropenia # neutropenic fever: Tmax 39.4 overnight, report fevers > 102 at home for days, with respiratory complaints. CXR this AM shows patchy b/l opacities concerning for atelectasis vs. PNA. Rigors concerning for bacteremia with blood cultures pending. Started on cefepime and vanco, will continue both for now given complaints of port pain and possible line infection (though port does not appear grossly infected). Blood cultures pending. Resp PCR negative on admission. HD stable, lactate wnl. Noncontrast CT Chest ordered this afternoon per oncology to further evaluate. # dysphagia: with oral mucosal lesions that appear most c/w mucositis but difficult to exclude thrush as well, will continue magic mouthwash, nystatin s/s , oral care # pancytopenia: in the setting of recent chemotherapy, hgb of 7.1, plts of 60, wbc of 0.19 on admission. Hgb 5.3 this AM, transfusing 2 units PRBCs. Continue to monitor H/H, will hold home Xarelto for now # DLBCL: undergoing RCHOP s/p cycle [address] Vickers, known bone mets and dural lesion noted on brain MRI, palliative care consult placed # hyponatremia: presumably hypovolemic hyponatremia and has slightly trended down from prior, patient with reasons for SIADH as well, improved to 135 this AM s/p IVF, will d/c IVF # DVT: will hold xarelto in setting of anemia as above, restart in next few days if H/H stable, platelets improved FEN: Regular, IVF DVT Ppx: Holding home Xarelto Code: DNR Dispo: Pending clinical course Subjective: Patient reports continued cough this AM Objective: Vital Signs Temp Pulse Resp BP Pulse Ox 36.9 C 74 18 98/52 L 95 02/12/19 10:22 02/12/19 11:28 02/12/19 11:28 02/12/19 10:22 02/12/19 11:28 Microbiology 02/11/19 17:50 Respiratory Panel (PCR) - Final Nasal, Sinus - Aspirate No Organism Detected By Pcr Laboratory Results 02/12/19 04:15 02/12/19 04:15 02/11/19 02/12/19 02/13/19 05:59 05:59 05:59 Intake Total 300 Output Total 600 Balance -300 PT 14.7 SEC (12.0-15.0) 02/11/19 15:54 INR 1.20 (0.83-1.16) H 02/11/19 15:54 - Physical Exam Constitutional: chronically ill appearing Eyes: PERRL Ears, Nose, Mouth, Throat: oral thrush Cardiovascular: regular rate and rhythym Respiratory: reduced air movement Gastrointestinal: soft, non-tender abdomen Skin: warm Musculoskeletal: generalized weakness Neurologic: AAOx3 Psychiatric: interacting appropriately ICD10 Worksheet Patient Problems: Problems Problem Status Onset Fever and neutropenia Acute Primary localized osteoarthritis of left hip Acute
[2019-02-12] MEDS ORDERED: VANCOMYCIN 1.25 GM in NS 250 ML IV SCH (17:00)
[2019-02-12] MEDS ORDERED: IPRATROPIUM/ALBUTEROL 3 ML DEYVIAL IH PRN (17:37)
[2019-02-12] MEDS: guaiFENesin/CODEINE PHOS 10 ML UDCUP PO PRN (20:59)
[2019-02-12] MEDS: LORazepam 1 MG TAB PO SCH (20:59)
[2019-02-12] MEDS: ALBUTEROL 60 PUFFS/8 GM MDI IH SCH (22:47)
[2019-02-13] MEDS: CEFEPIME HCL 2 GM in NS 100 ML IV SCH ×3 (01:51→16:59)
[2019-02-13] MEDS: NYSTATIN SUSP 500000 UNIT/5 ML UD LIQ PO SCH ×4 (05:34→19:55)
[2019-02-13] MEDS: LEVOTHYROXINE 50 MCG TAB PO SCH (05:35)
[2019-02-13] MEDS: MBX SOLN 30 ML BOTTLE PO PRN ×4 (05:35→19:51)
[2019-02-13 06:02] LABS: PLATELET COUNT 47 10^3/uL (150-400)
[2019-02-13] MEDS ORDERED: BIOTENE DRY MOUTH ORAL RINSE 237 ML BTL MM PRN (10:06)
[2019-02-13] MEDS: ACETAMINOPHEN 325 MG TAB PO PRN (10:08)
[2019-02-13] MEDS: ALBUTEROL 60 PUFFS/8 GM MDI IH SCH ×3 (10:24→20:45)
--- NOTE | 2019-02-13 11:33 | SOAPPROG ---
SOAP Progress Note Assessment/Plan: Assessment: This 79-year-old female with history of diffuse large B-cell lymphoma admitted for neutropenic fever. 1. Neutropenic fever: I did review her chest CT that demonstrates a slight right pleural effusion alongside interstitial markings. She has no focal consolidation. Her cultures have been negative. I agree with consolidating her antibiotics down to cefepime. Will continue monitor cultures. Her white blood cell count is improving. 2. Diffuse large B-cell lymphoma: Continue follow-up with Dr. Primitivo Vickers. 3. Thrombocytopenia 4. Anemia: She did have appropriate response to transfusion. Will continue to monitor closely. 5. History DVT: Agree with continue holding Xarelto. 02/13/19 11:31 Subjective: No acute events overnight. She states that she has been unable to eat much by mouth and has decreased appetite. No chest pain or shortness of breath. She continues to have a cough which has not improved. Objective: Vital Signs Temp Pulse Resp BP Pulse Ox 37.2 C 84 14 140/86 H 92 02/13/19 07:50 02/13/19 10:24 02/13/19 10:24 02/13/19 07:50 02/13/19 10:24 Laboratory Results 02/13/19 05:47 02/13/19 05:47 02/12/19 02/13/19 02/14/19 05:59 05:59 05:59 Intake Total 300 750 Output Total 600 Balance -300 750 PT 14.7 SEC (12.0-15.0) 02/11/19 15:54 INR 1.20 (0.83-1.16) H 02/11/19 15:54 General: Pleasant-appearing female in no acute distress appears stated age HEENT: Oropharynx is clear extraocular movements are intact pupils equal round reactive to light, area of trauma from previous fall noted on her forehead and nose Cardiovascular: Regular rate and rhythm Pulmonary: Clear to auscultation, improved from yesterday Abdomen: Soft nontender nondistended bowel sounds are present Extremities: Right-sided port in place no cyanosis clubbing or edema Skin: No skin lesions Lymph: No lymphadenopathy ICD10 Worksheet Patient Problems: Problems Problem Status Onset Fever and neutropenia Acute Primary localized osteoarthritis of left hip Acute
--- NOTE | 2019-02-13 13:16 | HOSPPROG ---
Hospitalist Progress Note Assessment/Plan: 79 yo F with stage 4 DLBCL s/p RCHOP cycle 3 approximately 2 weeks ago presenting with fever, rigors and cough as well as mouth pain and inability to tolerate PO in setting of neutropenia # neutropenic fever: - Tmax 39.4 on admission, report fevers > 102 at home for days, with respiratory complaints - CXR on admission shows patchy b/l opacities concerning for atelectasis vs. PNA. CT Chest performed yesterday which shows interstitial edema - Started on cefepime and vanco on admission, will d/c Vancomycin today, continue Cefepime for now - Blood cultures pending. - Resp PCR negative on admission. HD stable, lactate wnl. # dysphagia: with oral mucosal lesions that appear most c/w mucositis but difficult to exclude thrush as well - will continue magic mouthwash, nystatin s/s, oral care # pancytopenia: in the setting of recent chemotherapy - Hgb of 7.1, plts of 60, wbc of 0.19 on admission. - Hgb 5.3 with 2 units PRBCs transfused yesterday, repeat Hgb 7.5 this AM - Continue to monitor H/H - Holding home Xarelto for now # DLBCL: undergoing RCHOP s/p cycle [address] iVckers, known bone mets and dural lesion noted on brain MRI, palliative care consult placed # hyponatremia: presumably hypovolemic hyponatremia and has slightly trended down from prior, patient with reasons for SIADH as well, improved to 135 this AM s/p IVF, d/c IVF # DVT: will hold xarelto in setting of anemia as above, restart in next few days if H/H stable, platelets improved FEN: Regular, IVF DVT Ppx: Holding home Xarelto Code: DNR Dispo: Pending clinical course Subjective: Patient reports feeling improved this AM Objective: Vital Signs Temp Pulse Resp BP Pulse Ox 37.1 C 81 16 130/76 H 91 L 02/13/19 11:29 02/13/19 11:29 02/13/19 11:29 02/13/19 11:29 02/13/19 11:29 Laboratory Results 02/13/19 05:47 02/13/19 05:47 02/12/19 02/13/19 02/14/19 05:59 05:59 05:59 Intake Total 300 750 Output Total 600 Balance -300 750 PT 14.7 SEC (12.0-15.0) 02/11/19 15:54 INR 1.20 (0.83-1.16) H 02/11/19 15:54 - Physical Exam Constitutional: chronically ill appearing Eyes: PERRL Ears, Nose, Mouth, Throat: dry mucous membranes Cardiovascular: regular rate and rhythym Respiratory: reduced air movement Gastrointestinal: soft, non-tender abdomen Skin: normal color Musculoskeletal: generalized weakness Neurologic: AAOx3 Psychiatric: interacting appropriately ICD10 Worksheet Patient Problems: Problems Problem Status Onset Fever and neutropenia Acute Primary localized osteoarthritis of left hip Acute
[2019-02-13] MEDS ORDERED: PROTOCOL POTASSIUM 1 DOSE MISC PRN (14:22)
[2019-02-13] MEDS ORDERED: POTASSIUM CL 10 MEQ TAB PO ONE (15:05)
[2019-02-13] MEDS ORDERED: POTASSIUM Cl (KCl) 50 ML IV SCH (15:30)
[2019-02-13] MEDS: POTASSIUM Cl (KCl) 100 ML IV SCH ×4 (15:44→21:39)
--- NOTE | 2019-02-13 16:08 | ASMTCMCOM ---
CM Note CM Note Notes: PT/OT have cleared pt for home. A palliative care referral was sent to [facility] per pt and family request. Anticipate pt will d/c with no CM needs when medically cleared but will continue to follow. D/C plan: anticipate d/c home independent with [facility] Date Signed: 02/13/2019 04:08 PM Electronically Signed By:TAPAN Coffman
[2019-02-13] MEDS: LORazepam 1 MG TAB PO SCH (19:55)
[2019-02-14] MEDS: CEFEPIME HCL 2 GM in NS 100 ML IV SCH ×2 (00:14→09:30)
[2019-02-14] MEDS: LEVOTHYROXINE 50 MCG TAB PO SCH (05:41)
[2019-02-14] MEDS: NYSTATIN SUSP 500000 UNIT/5 ML UD LIQ PO SCH ×4 (05:41→19:58)
[2019-02-14] MEDS: guaiFENesin/CODEINE PHOS 10 ML UDCUP PO PRN (05:41)
[2019-02-14] MEDS: MBX SOLN 30 ML BOTTLE PO PRN (05:41)
[2019-02-14 07:00] LABS: PLATELET COUNT 73 10^3/uL (150-400)
[2019-02-14] MEDS: ALBUTEROL 60 PUFFS/8 GM MDI IH SCH ×3 (09:41→21:34)
[2019-02-14] MEDS: POTASSIUM Cl (KCl) 100 ML IV SCH ×3 (10:22→12:27)
--- NOTE | 2019-02-14 13:28 | SOAPPROG ---
SOAP Progress Note Assessment/Plan: Assessment: This 79-year-old female with history of diffuse large B-cell lymphoma admitted for neutropenic fever. 1. Neutropenic fever: White blood cell count continues to improve. ANC is 400 today. We will continue to monitor. She is on antibiotics previously with cefepime switched to Levaquin. Cultures are negative. 2. Diffuse large B-cell lymphoma: Continue follow-up with Dr. Primitivo Vickers. 3. Thrombocytopen 4. Anemia 5. History DVT: Can resume Xarelto if platelets are stable. 02/14/19 13:27 Subjective: No acute events overnight. No chest pain or shortness of breath. She is disappointed that she has had some difficulties with eating. She states that she had a smoothie today and had some pain around the bilateral ears. Objective: Vital Signs Temp Pulse Resp BP Pulse Ox 37.1 C 88 16 132/68 H 93 02/14/19 11:29 02/14/19 11:29 02/14/19 11:29 02/14/19 11:29 02/14/19 11:29 Microbiology 02/13/19 19:19 Gastrointestinal Tract Panel (PCR) - Final Stool No Organism Detected By Pcr Laboratory Results 02/14/19 05:45 02/14/19 05:45 02/13/19 02/14/19 02/15/19 05:59 05:59 05:59 Intake Total 750 500 Output Total 1300 Balance 750 -800 PT 14.7 SEC (12.0-15.0) 02/11/19 15:54 INR 1.20 (0.83-1.16) H 02/11/19 15:54 General: Tearful at times conversant no acute distress HEENT: Abrasions noted on the forehead and nose. Oropharynx is clear external moods are intact pupils equal round reactive to light Cardiovascular: Regular rate and rhythm Pulmonary: Clear to auscultation Extremities: No cyanosis clubbing or edema ICD10 Worksheet Patient Problems: Problems Problem Status Onset Fever and neutropenia Acute Primary localized osteoarthritis of left hip Acute
--- NOTE | 2019-02-14 14:39 | HOSPPROG ---
Hospitalist Progress Note Assessment/Plan: 79 yo F with stage 4 DLBCL s/p RCHOP cycle 3 approximately 2 weeks ago presenting with fever, rigors and cough as well as mouth pain and inability to tolerate PO in setting of neutropenia # neutropenic fever: - Tmax 39.4 on admission, report fevers > 102 at home for days, with respiratory complaints - CXR on admission shows patchy b/l opacities concerning for atelectasis vs. PNA. CT Chest performed on 02/13 which showed interstitial edema - Started on cefepime and vanco on admission, d/c Vancomycin on 02/13, switching from Cefepime to Levaquin today - Blood cultures- NGTD - Resp PCR negative on admission. HD stable, lactate wnl. - Afebrile in past 24 hours, will continue to monitor overnight on PO Abx # dysphagia: with oral mucosal lesions that appear most c/w mucositis but difficult to exclude thrush as well - will continue magic mouthwash, nystatin s/s, oral care, added Biotene on 02/13 # pancytopenia: in the setting of recent chemotherapy - Hgb of 7.1, plts of 60, wbc of 0.19 on admission. - Hgb 5.3 with 2 units PRBCs transfused on 02/12, repeat Hgb 7.6 this AM - Continue to monitor H/H - Holding home Xarelto for now # DLBCL: undergoing RCHOP s/p cycle [address] Vickers, known bone mets and dural lesion noted on brain MRI, palliative care consult placed # hyponatremia: presumably hypovolemic hyponatremia and has slightly trended down from prior, patient with reasons for SIADH as well, improved to 135 this AM s/p IVF, d/c IVF # DVT: will hold xarelto in setting of anemia as above, restart in next few days if H/H stable, platelets improved FEN: Regular, IVF DVT Ppx: Holding home Xarelto Code: DNR Dispo: Pending clinical course Subjective: Patient reports continued pain with swallowing this aM Objective: Vital Signs Temp Pulse Resp BP Pulse Ox 37.1 C 88 16 132/68 H 93 02/14/19 11:29 02/14/19 11:29 02/14/19 11:29 02/14/19 11:29 02/14/19 11:29 Microbiology 02/13/19 19:19 Gastrointestinal Tract Panel (PCR) - Final Stool No Organism Detected By Pcr Laboratory Results 02/14/19 05:45 02/14/19 05:45 02/13/19 02/14/19 02/15/19 05:59 05:59 05:59 Intake Total 750 500 Output Total 1300 Balance 750 -800 PT 14.7 SEC (12.0-15.0) 02/11/19 15:54 INR 1.20 (0.83-1.16) H 02/11/19 15:54 - Physical Exam Constitutional: chronically ill appearing Eyes: PERRL Ears, Nose, Mouth, Throat: dry mucous membranes Cardiovascular: regular rate and rhythym Respiratory: no respiratory distress Gastrointestinal: soft, non-tender abdomen Skin: warm Musculoskeletal: generalized weakness Neurologic: AAOx3 Psychiatric: interacting appropriately ICD10 Worksheet Patient Problems: Problems Problem Status Onset Fever and neutropenia Acute Primary localized osteoarthritis of left hip Acute
--- NOTE | 2019-02-14 15:17 | ASMTCMCOM ---
CM Note CM Note Notes: Met with patient who confirmed her sister would be flying in from [place] on Monday to help care for her at home. [facility] as [facility]. CM available for further needs. Plan: [facility] Date Signed: 02/14/2019 03:16 PM Electronically Signed By:Mildred Mitchell RN
[2019-02-14] MEDS ORDERED: POTASSIUM Cl (KCl) 50 ML IV ONE (19:41)
[2019-02-14] MEDS: LORazepam 1 MG TAB PO SCH (19:58)
[2019-02-14] MEDS: POTASSIUM Cl (KCl) 50 ML IV SCH ×3 (20:01→22:29)
[2019-02-14] MEDS: ACETAMINOPHEN 325 MG TAB PO PRN (23:00)
[2019-02-15] MEDS ORDERED: MELATONIN 3 MG TAB PO PRN (00:05)
[2019-02-15] MEDS: LEVOTHYROXINE 50 MCG TAB PO SCH (05:19)
[2019-02-15] MEDS: NYSTATIN SUSP 500000 UNIT/5 ML UD LIQ PO SCH ×4 (05:19→20:00)
[2019-02-15 05:47] LABS: PLATELET COUNT 87 10^3/uL (150-400)
[2019-02-15] MEDS: ALBUTEROL 60 PUFFS/8 GM MDI IH SCH ×3 (08:44→20:40)
--- NOTE | 2019-02-15 09:59 | SOAPPROG ---
SOAP Progress Note Assessment/Plan: Assessment: This 79-year-old female with history of diffuse large B-cell lymphoma admitted for neutropenic fever. 1. Neutropenic fever: White blood cell count continues to improve. ANC is 700 today. Cultures negative. She has been tapered down to Levaquin. 2. Diffuse large B-cell lymphoma: Continue follow-up with Dr. Primitivo Vickers. 3. Thrombocytopenia: Improved. 4. Anemia 5. History DVT: Can resume Xarelto today. 6. Bilateral Ear pain: This appears to be instigated by swallowing liquids or solids. It does not appear to be cold intolerance. Interestingly, she does not have any complaints with regards to water. I have requested a ENT consultation. 02/15/19 09:59 Subjective: No acute events overnight. She continues to have issues with pain in the bilateral ears when she eats or drinks anything aside from water. This is fairly distressing to her and she is extraordinarily depressed secondary. Objective: Vital Signs Temp Pulse Resp BP Pulse Ox 36.6 C 86 18 118/72 96 02/15/19 08:00 02/15/19 08:00 02/15/19 08:00 02/15/19 08:00 02/15/19 08:00 Laboratory Results 02/15/19 05:30 02/15/19 05:30 02/14/19 02/15/19 02/16/19 05:59 05:59 05:59 Intake Total 500 1900 Output Total 1300 Balance -800 1900 PT 14.7 SEC (12.0-15.0) 02/11/19 15:54 INR 1.20 (0.83-1.16) H 02/11/19 15:54 General: Pleasant-appearing female in no acute distress appears stated age. HEENT: Abrasion noted on the forehead and nose, oropharynx clear extraocular movements are intact pupils equal round reactive to light Cardiovascular: Regular rate and rhythm Pulmonary: Clear to auscultation GI: Soft nontender nondistended bowel sounds are present Extremities: No cyanosis clubbing or edema Psych: Depressed affect, tearful at times Neuro: Moving all extremities ICD10 Worksheet Patient Problems: Problems Problem Status Onset Fever and neutropenia Acute Primary localized osteoarthritis of left hip Acute
[2019-02-15] MEDS ORDERED: LIDOCAINE 2% VISCOUS 15 ML UDCUP PO PRN (11:33)
[2019-02-15] MEDS: RIVAROXABAN 20 MG TAB PO SCH (11:35)
[2019-02-15] MEDS: MBX SOLN 30 ML BOTTLE PO PRN ×2 (11:37→14:18)
--- NOTE | 2019-02-15 12:59 | HOSPPROG ---
Hospitalist Progress Note Assessment/Plan: 79 yo F with stage 4 DLBCL s/p RCHOP cycle 3 approximately 2 weeks ago presenting with fever, rigors and cough as well as mouth pain and inability to tolerate PO in setting of neutropenia # neutropenic fever: - Tmax 39.4 on admission, report fevers > 102 at home for days, with respiratory complaints - CXR on admission shows patchy b/l opacities concerning for atelectasis vs. PNA. CT Chest performed on 02/13 which showed interstitial edema - Started on cefepime and vanco on admission, d/c Vancomycin on 02/13, switched from Cefepime to Levaquin yesterday - Blood cultures- NGTD - Resp PCR negative on admission. HD stable, lactate wnl. - Afebrile in past 24 hours, will continue to monitor on PO Abx while remains neutropenic # dysphagia: with oral mucosal lesions that appear most c/w mucositis but difficult to exclude thrush as well - will continue magic mouthwash, nystatin s/s, oral care, added Biotene on 02/13 , added viscous lidocaine this AM - Oncology consulting ENT this AM due to b/l ear pain with swallowing # pancytopenia: in the setting of recent chemotherapy - Hgb of 7.1, plts of 60, wbc of 0.19 on admission. - Hgb 5.3 with 2 units PRBCs transfused on 02/12, repeat Hgb 7.6 this AM - Continue to monitor H/H - Restarting home Xarelto today, was on hold in setting of decreasing Hgb on admission # DLBCL: undergoing RCHOP s/p cycle [address] Vickers, known bone mets and dural lesion noted on brain MRI, palliative care consulted # hyponatremia: presumably hypovolemic hyponatremia and has slightly trended down from prior, patient with reasons for SIADH as well, improved to 132 from 129 on admission, continue to monitor # DVT: Restarted home Xarelto, monitor for s/s of bleeding FEN: Regular, IVF DVT Ppx: Holding home Xarelto Code: DNR Dispo: Pending clinical course Subjective: Patient reports severe pain with swallowing anything other than water, b/l ear pain assoc as well Objective: Vital Signs Temp Pulse Resp BP Pulse Ox 36.5 C 86 18 118/72 96 02/15/19 11:32 02/15/19 08:00 02/15/19 08:00 02/15/19 08:00 02/15/19 08:00 Laboratory Results 02/15/19 05:30 02/15/19 05:30 02/14/19 02/15/19 02/16/19 05:59 05:59 05:59 Intake Total 500 1900 150 Output Total 1300 Balance -800 1900 150 PT 14.7 SEC (12.0-15.0) 02/11/19 15:54 INR 1.20 (0.83-1.16) H 02/11/19 15:54 - Physical Exam Constitutional: chronically ill appearing Eyes: PERRL Ears, Nose, Mouth, Throat: dry mucous membranes Cardiovascular: regular rate and rhythym Respiratory: no respiratory distress Gastrointestinal: soft, non-tender abdomen Skin: warm Musculoskeletal: generalized weakness Neurologic: AAOx3 Psychiatric: interacting appropriately ICD10 Worksheet Patient Problems: Problems Problem Status Onset Fever and neutropenia Acute Primary localized osteoarthritis of left hip Acute
[2019-02-15] MEDS: ACETAMINOPHEN 325 MG TAB PO PRN (14:14)
--- NOTE | 2019-02-15 14:33 | GCON ---
[f rep st] CONSULTATION Patient is an 79-year-old woman who presented to the emergency room on February 11, with neutropenia. She has diffuse B-cell lymphoma. Since being admitted, she complains of a left-sided sore throat, a nd every time she swallows, it radiates to her ears. She has had fever and shaking chills on admissi on, decreased oral intake. Nose is clear. PAST MEDICAL HISTORY: Significant for lymphoma and a left leg DVT. She is currently on Xarelto. SOCIAL HISTORY: Lives independently. PHYSICAL EXAMINATION: GENERAL: Patient is alert and oriented, in no acute distress. HEAD: Atrauma tic, normocephalic. EARS: Clear. NOSE: Dry. ORAL CAVITY/OROPHARYNX: Clear. NECK: Supple. Fiberoptic laryngoscopy was performed at bedside. She had a large aphthous ulcer on her left lingual tonsil area. Vocal cords were intact. No other masses or lesions were appreciated. ASSESSMENT AND PLAN: Patient with a large aphthous ulcer of left lingual tonsil area. I will start her on Benadryl, Mylanta/Orapred rinse that she will slowly swallow. I explained that these can ofte n be symptomatic for up to 7-10 days. Thank you for allowing us to participate in her care. /[id number]/MODL
[2019-02-15] MEDS ORDERED: [UNRECOGNIZED DRUG - OTHER] PO SCH (16:00)
[2019-02-15] MEDS: POTASSIUM Cl (KCl) 100 ML IV SCH ×2 (16:38→17:47)
--- NOTE | 2019-02-15 16:44 | ASMTCMCOM ---
CM Note CM Note Notes: Discussed in rounds. Pt's twin sister has arrived which has lifted her spirits. Pt seen by Sabra ELIZABETH who performed a Laryngoscopy at the bedside and found an ulcer on her lt tonsil. Medication given which has help and she is now able to eat and drink. Spiritual Care here to see Pt and discuss "Pall care" but Pt did not want to talk at that time her sister had just arrive. CM will monitor needs. PLAN: Home with Sister and possibly [facility]. Date Signed: 02/15/2019 04:42 PM Electronically Signed By:Carley Jonas
[2019-02-15] MEDS: prednisoLONE 15 MG/5 ML ORAL UD LIQ PO SCH ×2 (16:52→20:40)
[2019-02-15] MEDS: diphenhydrAMINE 12.5 MG/5 ML UDCUP PO SCH ×2 (16:52→20:40)
[2019-02-15] MEDS: MAG HYDROX/AL HYDROX/SIMETH 30 ML UDCUP PO SCH ×2 (16:52→20:40)
[2019-02-15] MEDS ORDERED: POTASSIUM Cl (KCl) 50 ML IV ONE (19:47)
[2019-02-15] MEDS: LORazepam 1 MG TAB PO SCH (20:00)
[2019-02-16] MEDS: NYSTATIN SUSP 500000 UNIT/5 ML UD LIQ PO SCH ×4 (06:20→19:59)
[2019-02-16] MEDS: LEVOTHYROXINE 50 MCG TAB PO SCH (06:20)
[2019-02-16 06:35] LABS: PLATELET COUNT 136 10^3/uL (150-400)
[2019-02-16] MEDS: MAG HYDROX/AL HYDROX/SIMETH 30 ML UDCUP PO SCH ×3 (09:13→22:05)
[2019-02-16] MEDS: prednisoLONE 15 MG/5 ML ORAL UD LIQ PO SCH ×3 (09:20→22:05)
[2019-02-16] MEDS: diphenhydrAMINE 12.5 MG/5 ML UDCUP PO SCH ×3 (09:20→22:05)
[2019-02-16] MEDS: ALBUTEROL 60 PUFFS/8 GM MDI IH SCH ×3 (09:57→22:04)
--- NOTE | 2019-02-16 11:17 | SOAPPROG ---
SOAP Progress Note Assessment/Plan: E&M for diffuse large B-cell lymphoma * Neutropenic fever: White blood cell count improving. ANC is just under 1000 today. Cultures negative. She has been tapered down to Levaquin. I recommend watching her for 1 more day and then she can probably go home tomorrow without antibiotics. * Diffuse large B-cell lymphoma: She is day 17 of cycle 4 of R CHOP. She will follow-up with Dr. Vickers for reassessment and determination of further therapy including whether dose reductions or other changes need to be made. * Thrombocytopenia: Resolved * Anemia: Improving and no indication for transfusion * History DVT: Can resume Xarelto today. * Bilateral Ear pain: Appreciate ENTs assistance. She seems to be doing much better and able to eat this morning. I think she will continue to improve as her blood counts improved. Subjective: She is feeling much better. The pain in her ear and throat has improved and she is able to eat breakfast. She denies any chills or diarrhea. She is hoping to go home soon. Objective: Vital Signs Temp Pulse Resp BP Pulse Ox 37.1 C 86 18 159/98 H 91 L 02/16/19 08:44 02/16/19 08:44 02/16/19 08:44 02/16/19 08:44 02/16/19 08:44 Laboratory Results 02/16/19 06:15 02/16/19 06:15 02/15/19 02/16/19 02/17/19 05:59 05:59 05:59 Intake Total 1900 700 Balance 1900 700 PT 14.7 SEC (12.0-15.0) 02/11/19 15:54 INR 1.20 (0.83-1.16) H 02/11/19 15:54 Physical Exam - Physical Exam General Appearance: no apparent distress EENT: pharynx normal Respiratory: lungs clear Cardiac/Chest: regular rate, rhythm, systolic murmur Abdomen: non-tender, soft ICD10 Worksheet Patient Problems: Problems Problem Status Onset Fever and neutropenia Acute Primary localized osteoarthritis of left hip Acute
[2019-02-16] MEDS: MBX SOLN 30 ML BOTTLE PO PRN ×3 (12:10→17:33)
[2019-02-16] MEDS: RIVAROXABAN 20 MG TAB PO SCH (12:28)
--- NOTE | 2019-02-16 15:17 | HOSPPROG ---
Hospitalist Progress Note Assessment/Plan: 79 yo F with stage 4 DLBCL s/p RCHOP cycle 3 approximately 2 weeks ago presenting with fever, rigors and cough as well as mouth pain and inability to tolerate PO in setting of neutropenia # neutropenic fever: - Tmax 39.4 on admission, report fevers > 102 at home for days, with respiratory complaints - CXR on admission shows patchy b/l opacities concerning for atelectasis vs. PNA. CT Chest performed on 02/13 which showed interstitial edema - Started on cefepime and vanco on admission, d/c Vancomycin on 02/13, switched from Cefepime to Levaquin on 02/14 (Day 6 of abx) - Blood cultures- NGTD - Resp PCR negative on admission. HD stable, lactate wnl. - Afebrile in past 72 hours, will continue to monitor on PO Abx while remains neutropenic, likely d/c abx tomorrow after 7 day course # dysphagia: with oral mucosal lesions that appear most c/w mucositis but difficult to exclude thrush as well - will continue magic mouthwash, nystatin s/s, oral care, added Biotene on 02/13 , added viscous lidocaine on 02/15 - Oncology consulted ENT on 02/15, s/p laryngoscopy which showed L sided apthous ulcer, started benadryl, mylanta, steroid PO with significant improvement in symptoms, able to tolerate food without significant pain # pancytopenia: in the setting of recent chemotherapy - Hgb of 7.1, plts of 60, wbc of 0.19 on admission. - Hgb 5.3 with 2 units PRBCs transfused on 02/12, repeat Hgb 8.3 this AM - Continue to monitor H/H - Restarted home Xarelto on 02/15, was on hold in setting of decreasing Hgb on admission # DLBCL: undergoing RCHOP s/p cycle [address] Vickers, known bone mets and dural lesion noted on brain MRI, palliative care consulted # hyponatremia: presumably hypovolemic hyponatremia and has slightly trended down from prior, patient with reasons for SIADH as well, improved to 132 from 129 on admission, continue to monitor # DVT: Restarted home Xarelto, monitor for s/s of bleeding FEN: Regular, IVF DVT Ppx: Home Xarelto Code: DNR Dispo: Pending clinical course Subjective: Patient reports significant improvement in pain with swallowing Objective: Vital Signs Temp Pulse Resp BP Pulse Ox 36.6 C 80 18 150/86 H 95 02/16/19 11:17 02/16/19 11:17 02/16/19 11:17 02/16/19 11:17 02/16/19 11:17 Laboratory Results 02/16/19 06:15 02/16/19 06:15 02/15/19 02/16/19 02/17/19 05:59 05:59 05:59 Intake Total 1900 700 Balance 1900 700 PT 14.7 SEC (12.0-15.0) 02/11/19 15:54 INR 1.20 (0.83-1.16) H 02/11/19 15:54 - Physical Exam Constitutional: chronically ill appearing Eyes: PERRL Ears, Nose, Mouth, Throat: dry mucous membranes Cardiovascular: regular rate and rhythym Respiratory: no respiratory distress Gastrointestinal: soft, non-tender abdomen Skin: warm Musculoskeletal: generalized weakness Neurologic: AAOx3 Psychiatric: interacting appropriately ICD10 Worksheet Patient Problems: Problems Problem Status Onset Fever and neutropenia Acute Primary localized osteoarthritis of left hip Acute
[2019-02-16] MEDS: LORazepam 1 MG TAB PO SCH (19:59)
[2019-02-17] MEDS: NYSTATIN SUSP 500000 UNIT/5 ML UD LIQ PO SCH ×2 (05:22→14:28)
[2019-02-17] MEDS: LEVOTHYROXINE 50 MCG TAB PO SCH (05:22)
[2019-02-17 05:37] LABS: PLATELET COUNT 140 10^3/uL (150-400)
[2019-02-17] MEDS: MBX SOLN 30 ML BOTTLE PO PRN ×2 (08:27→11:39)
[2019-02-17] MEDS: MAG HYDROX/AL HYDROX/SIMETH 30 ML UDCUP PO SCH (09:16)
[2019-02-17] MEDS: prednisoLONE 15 MG/5 ML ORAL UD LIQ PO SCH (09:17)
[2019-02-17] MEDS: diphenhydrAMINE 12.5 MG/5 ML UDCUP PO SCH (09:18)
[2019-02-17] MEDS: ALBUTEROL 60 PUFFS/8 GM MDI IH SCH ×2 (09:22→09:30)
--- NOTE | 2019-02-17 10:08 | ASMTCMCOM ---
CM Note CM Note Notes: Met with Pt who will discharge today. Pt is refusing [facility] at this time but will call them if needed. Pt's sister is in town for the next two week to help her. CM available if needs arise. PLAN: Home independently with sister, Yue Lowe available if needed. Date Signed: 02/17/2019 10:08 AM Electronically Signed By:Carley Jonas
--- NOTE | 2019-02-17 10:11 | ASMTLACE ---
LACE Length of stay for Answers: 4-6 days current admission Acuity / Level of Answers: Yes Care: Did the patient have an inpatient admission? Comorbidities - select Answers: Any tumor (including all that apply lymphoma or leukemia) Other Notes: arthritis, DVT, hypothy lupe d # of Emergency department Answers: 1-2 visits in the last 6 months Score: 11 Date Signed: 02/17/2019 10:11 AM Electronically Signed By:Carley Jonas
[2019-02-17] MEDS ORDERED: POTASSIUM CL 10 MEQ TAB PO ONE (10:15)
[2019-02-17 12:29] VITALS: BP 143/89
[2019-02-17] MEDS: RIVAROXABAN 20 MG TAB PO SCH (14:28)
--- NOTE | 2019-02-17 14:48 | PDDCSUM ---
Discharge Summary Discharge Summary: Date of Admission: 02/11/2019 Date of Discharge: 02/17/2019 Consults: Oncology, ENT Procedures: Laryngoscopy Followup: PCP, Oncology Hospital Course Problem List: 79 yo F with stage 4 DLBCL s/p RCHOP cycle 3 approximately 2 weeks ago presenting with fever, rigors and cough as well as mouth pain and inability to tolerate PO in setting of neutropenia # neutropenic fever: - Tmax 39.4 on admission, report fevers > 102 at home for days, with respiratory complaints - CXR on admission shows patchy b/l opacities concerning for atelectasis vs. PNA. CT Chest performed on 02/13 which showed interstitial edema - Started on cefepime and vanco on admission, d/c Vancomycin on 02/13, switched from Cefepime to Levaquin on 02/14 and complete total 7 days of abx - Blood cultures- NGTD - Resp PCR negative on admission. HD stable, lactate wnl. - Afebrile in past 72 hours # dysphagia: with oral mucosal lesions that appear most c/w mucositis but difficult to exclude thrush as well - will continue magic mouthwash, nystatin s/s, oral care, added Biotene on 02/13 , added viscous lidocaine on 02/15 - Oncology consulted ENT on 02/15, s/p laryngoscopy which showed L sided apthous ulcer, started benadryl, mylanta, steroid PO with significant improvement in symptoms, able to tolerate food without significant pain # pancytopenia: in the setting of recent chemotherapy - Hgb of 7.1, plts of 60, wbc of 0.19 on admission. - Hgb 5.3 with 2 units PRBCs transfused on 02/12, repeat Hgb 8.3 this AM - Continue to monitor H/H - Restarted home Xarelto on 02/15, was on hold in setting of decreasing Hgb on admission # DLBCL: undergoing RCHOP s/p cycle [address] Vickers, known bone mets and dural lesion noted on brain MRI, palliative care consulted # hyponatremia: presumably hypovolemic hyponatremia and has slightly trended down from prior, patient with reasons for SIADH as well, improved to 132 from 129 on admission, continue to monitor # DVT: Restarted home Xarelto, monitor for s/s of bleeding Time spent on discharge was >35 minutes with >50% of time spent on patient education and counseling.
--- NOTE | 2019-02-19 11:52 | ASDISCHSUM ---
Discharge Information Plan Status:Home with No Needs Medically Cleared to Leave:02/17/2019 Discharge Date:02/17/2019 03:14 PM CM D/C Disposition:Home, Routine, Self-Care ADT D/C Disposition:Home, Routine, Self-Care Projected Discharge Date:02/14/2019 11:00 AM Transportation at D/C: Discharge Delay Reason: Follow-Up Date:02/14/2019 11:00 AM Discharge Slot: Final Diagnosis: Placement Information Referral Type:Palliative Care Referral ID:[id number] Provider Name: Address 1: Phone Number: Address 2: Fax Number: City: Selection Factors: State: Patient Contact Information Contact Name:TRACIEMIGUE Relationship:Sister Address:[address] City:[place] Alternate Phone: State/Zip Code:[place] [address] Email: Financial Information Financial Class:Medicare Primary Plan Desc:MEDICARE INPATIENT Primary Plan Number:[id number] Secondary Plan Desc:[employer]/MDR SUPPLEMENT Secondary Plan Number:[id number] Assessment Information LACE LACE Length of stay for Answers: 4-6 days current admission Acuity / Level of Answers: Yes Care: Did the patient have an inpatient admission? Comorbidities - select Answers: Any tumor (including all that apply lymphoma or leukemia) Other Notes: arthritis, DVT, hypothy lupe d # of Emergency department Answers: 1-2 visits in the last 6 months Score: 11 Date Signed: 02/17/2019 10:11 AM Electronically Signed By:Carley Jonas [facility] CM Progress Note CM Note CM Note Notes: 02/12/2019 Case Management Note Discussed pt during rounds this morning. Pt admitted for fever, neutropenia and lymphoma in the setting of recently diagnosed DLBCL stage 4 with known mets to skull and dura as well as possible mets to tongue and tonsils. [facility] onsite to meet w/pt. PT OT evals are pending. Case Management d/c poc: to be determined. Case Management to follow. Date Signed: 02/12/2019 11:59 AM Electronically Signed By:Génesis Martínez RN [facility] CM Progress Note CM Note CM Note Notes: PT/OT have cleared pt for home. A palliative care referral was sent to [facility] per pt and family request. Anticipate pt will d/c with no CM needs when medically cleared but will continue to follow. D/C plan: anticipate d/c home independent with [facility] Date Signed: 02/13/2019 04:08 PM Electronically Signed By:TAPAN Coffman [facility] CM Progress Note CM Note CM Note Notes: Met with patient who confirmed her sister would be flying in from [place] on Monday to help care for her at home. She has been set-up with [facility] as well. CM available for further needs. Plan: [facility] Date Signed: 02/14/2019 03:16 PM Electronically Signed By:Mildred Mitchell RN [facility] Progress Note CM Note CM Note Notes: Discussed in rounds. Pt's twin sister has arrived which has lifted her spirits. Pt seen by Sabra ELIZABETH who performed a Laryngoscopy at the bedside and found an ulcer on her lt tonsil. Medication given which has help and she is now able to eat and drink. Spiritual Care here to see Pt and discuss "Pall care" but Pt did not want to talk at that time her sister had just arrive. CM will monitor needs. PLAN: Home with Sister and possibly [facility]. Date Signed: 02/15/2019 04:42 PM Electronically Signed By:Carley Jonas [facility] Progress Note CM Note CM Note Notes: Met with Pt who will discharge today. Pt is refusing [facility] at this time but will call them if needed. Pt's sister is in town for the next two week to help her. CM available if needs arise. PLAN: Home independently with Yue lin available if needed. Date Signed: 02/17/2019 10:08 AM Electronically Signed By:Carley Jonas Intervention Information Intervention Type:*IM-Signed Date of Service:02/15/2019 10:52 AM Patient Type:Inpatient Staff Member:Nunu Morejon Hours: Discipline: Severity: Comment:
== END 2019-02-17 15:14 | disposition home or self-care (01) | DRG 809 ==
LOC: EDUNIT# → F1N 18:10
PROVIDERS: ADMIT Internal Medicine; ATTEND Internal Medicine
PROC: 30233N1 Transfusion of Nonautologous Red Blood Cells into Peripheral Vein, Percutaneous Approach (ICD-10-PCS; principal; 2019-02-12)
DX: D70.9 Neutropenia, unspecified (principal); C83.30 Diffuse large B-cell lymphoma, unspecified site; E87.1 Hypo-osmolality and hyponatremia; R50.81 Fever presenting with conditions classified elsewhere; R13.10 Dysphagia, unspecified; D61.810 Antineoplastic chemotherapy induced pancytopenia; K12.0 Recurrent oral aphthae; E03.9 Hypothyroidism, unspecified; Z80.0 Family history of malignant neoplasm of digestive organs; Z66 Do not resuscitate; Z79.01 Long term (current) use of anticoagulants; Z86.718 Personal history of other venous thrombosis and embolism
CPT/HCPCS: 96365; 97110-GP; 97116-GP; 97162-GP; 97165-GO; 97535-GO; J0692; J1170; J1642; J3370; J3480; J7510; J7613; P9016; P9040

== ENCOUNTER → 2019-02-22 | Outpatient (CLI) | payer OTHER, MEDICARE ==
[~2019-02-22] MED LIST changes: -IOPAMIDOL (ISOVUE-M 200) 20 ML VIAL ONE
[2019-02-22 09:32] LABS: INR 0.98 (0.83-1.16); PROTIME(PATIENT) 12.6 SEC (12.0-15.0)
== END ==
LOC: FIMAGING 08:22
PROVIDERS: ATTEND Internal Medicine Hematology & Oncology
DX: C83.30 Diffuse large B-cell lymphoma, unspecified site (principal)
CPT/HCPCS: 88108; J9250

== ENCOUNTER → 2019-03-15 | Outpatient (CLI) | payer OTHER, MEDICARE ==
[2019-03-15 09:46] LABS: INR 1.03 (0.83-1.16); PROTIME(PATIENT) 13.1 SEC (12.0-15.0)
== END ==
LOC: FIMAGING 08:20
PROVIDERS: ATTEND Internal Medicine Hematology & Oncology
PROC: 009U3ZX Drainage of Spinal Canal, Percutaneous Approach, Diagnostic (ICD-10-PCS; principal; 2019-03-15)
DX: C83.30 Diffuse large B-cell lymphoma, unspecified site (principal)
CPT/HCPCS: 62270; 88108; J9250

== ENCOUNTER 2019-03-19 15:40 | Outpatient (CLI) | payer OTHER, MEDICARE ==
[2019-03-19] MEDS ORDERED: ACETAMINOPHEN 325 MG TAB PO ONE (16:15)
[2019-03-19] MEDS ORDERED: diphenhydrAMINE 12.5 MG/5 ML UDCUP PO ONE (16:15)
== END 2019-03-19 19:54 | disposition home or self-care (01) ==
LOC: FOBOP 15:40
PROVIDERS: ATTEND Internal Medicine Hematology & Oncology
PROC: 30253N1 (ICD-10-PCS; principal; 2019-03-19)
DX: C85.90 Non-Hodgkin lymphoma, unspecified, unspecified site (principal)
CPT/HCPCS: 36430; J1642; P9016; P9040

== ENCOUNTER → 2019-04-15 | Outpatient (CLI) | payer OTHER, MEDICARE ==
[~2019-04-15] MED LIST changes: +GADOBUTROL 10 ML VIAL IVP ONE; -LIDOCAINE 1% 300 MG/30 ML SDV ONE; -METHOTREXATE SODIUM IT ONE; -NS IT ONE
== END ==
LOC: FIMAGING 10:20
PROVIDERS: ATTEND Nurse Practitioner
DX: Z08 Encounter for follow-up examination after completed treatment for malignant neoplasm (principal); C85.10 Unspecified B-cell lymphoma, unspecified site; Z92.21 Personal history of antineoplastic chemotherapy; Z85.830 Personal history of malignant neoplasm of bone
CPT/HCPCS: 70553; A9585; J1642

== ENCOUNTER 2019-05-02 11:15 | Day surgery (SDC) | payer OTHER, MEDICARE | END 2019-05-02 15:36 | disposition home or self-care (01) | LOC: FIMAGING 11:15 ==

== ENCOUNTER 2019-05-11 14:43 | Emergency (ER) | payer OTHER, MEDICARE | END 2019-05-11 18:38 | disposition home or self-care (01) ==